=== PATIENT | male | born 1960 | race African-American/Black ===

== ENCOUNTER 2018-04-07 13:45 | Emergency (ER) | payer MEDICAID ==
--- NOTE | 2018-04-07 14:05 | Emergency Department Record ---
History of Present Illness - General Chief Complaint: Wound, puncture Stated Complaint: FISH HOOK THROUGH LT RING FINGER Time Seen by Provider: 04/07/18 14:04 Source: Patient Mode of Arrival: Ambulatory Limitations: No limitations - History of Present Illness Initial Commments: The patient is here due to fish hook stuck in the L 4th finger for an hour. He accidentally got hooked in his garage and was not actually fishing. The hook is stuck in the dorsal distal finger proximal to the nail. His Td is UTD and he denies any numbness. The patient also did not take his BP medicines today. Onset/Timin -: Hour(s) Place: Home Context: Accidental Associated Symptoms: None - Matheus Coma Scale Eye Response: (4) Open spontaneously Motor Response: (6) Obeys commands Verbal Response: (5) Oriented [place] Total: 15 - Related Data Patient Tetanus UTD (within 5 yrs): Yes Home Medications Medication Instructions Recorded Confirmed Last Taken Aspirin [Adult Aspirin] 81 mg PO DAILY 04/07/18 04/07/18 1 Day Ago ~04/06/18 Atorvastatin Calcium 40 mg PO DAILY 04/07/18 04/07/18 1 Day Ago ~04/06/18 Clonidine HCl 0.1 mg PO TID 04/07/18 04/07/18 1 Day Ago ~04/06/18 Hydrochlorothiazide [Hctz] 50 mg PO BID 04/07/18 04/07/18 1 Day Ago ~04/06/18 Previous Rx's Medication Instructions Recorded Cephalexin [Keflex] 500 mg PO QID #28 cap 04/07/18 Allergies Allergy/AdvReac Type Severity Reaction Status Date / Time lisinopril Allergy SWELLING Verified 04/07/18 13:53 OF THE TONGUE Travel Screening - Travel/Exposure Within Last 30 Days Have you traveled within the last 30 days?: No - Travel/Exposure Within Last Year Have you traveled outside the [place] in the last year?: No - Additonal Travel Details Have you been exposed to anyone with a communicable illness?: No - Travel Symptoms Symptom Screening: None Review of Systems Constitutional: Denies: Chills, Fever Past Medical History - SOCIAL HISTORY Smoking Status: Never smoker Alcohol Use: Occasional Drug Use: Occasional Drug Use Detail:: Marijuana - RESPIRATORY Hx Respiratory Disorders: No - CARDIOVASCULAR Hx Hypertension: Yes - NEURO Hx CVA: Yes (2014) Comment:: walks with a limp, right sided - GI Hx GI Disorders: No - Hx Genitourinary Disorders: No - ENDOCRINE Hx Endocrine Disorders: No - MUSCULOSKELETAL Hx Musculoskeletal Disorders: No - PSYCH Hx Psych Problems: No - HEMATOLOGY/ONCOLOGY Hx Hematology/Oncology Disorders: No Family Medical History Any Significant Family History?: Yes Physical Exam - General General Appearance: Alert, Cooperative, No acute distress - Extremities Extremities exam: Full ROM, Tenderness. negative: Normal inspection (There is a fish hook stuck in the dorsal 4th finger.) Image of Hand: 1 - Fish hook location. Course Vital Signs 04/07/18 13:47 Temperature 98.4 F Pulse Rate 78 Respiratory 20 Rate Blood Pressure 201/123 Pulse Ox 98 - Reevaluation(s) Reevaluation #1: Procedure note: The L 4th finger was anesth. using a digital block technique with a 50:50 mixture of Lido 1% and Sensoricaine. The PW was then cleansed with alcohol and the hook easily removed by pulling on it with forceps. 04/07/18 14:24 Reevaluation #2: The patient was encouraged to regularly check his BP and see his PCP next week for recheck. 04/07/18 14:37 Disposition Disposition: Discharge Clinical Impression: Fish hook injury of left hand Qualifiers: Encounter type: initial encounter Qualified Code(s): S69.92XA - Unspecified injury of left wrist, hand and finger(s), initial encounter Disposition: Home, Self-Care Condition: (2) Stable Instructions: Puncture Wound (ED) Additional Instructions: Keep the wound clean and dry for 2 days and watch for signs of infection. Take the Keflex as directed and return to the ER for any problems or increasing pain. Prescriptions: Cephalexin [Keflex] 500 mg PO QID #28 cap Forms: Patient Portal Access Time of Disposition: 14:27 Quality - Quality Measures Quality Measures: N/A - Blood Pressure Screening View Details: Yes Does Patient Have Any of the Following: Active Dx of HTN Blood Pressure Classification: Hypertensive Reading Systolic Measurement: 201 Diastolic Measurement: 123 Screening for High Blood Pressure: Patient Exclusion, Hx of HTN [G9744]
== END 2018-04-07 14:36 | disposition home or self-care (01) ==
LOC: ER 13:45
DX: S61.245A Puncture wound with foreign body of left ring finger without damage to nail, initial encounter (principal); W45.8XXA Other foreign body or object entering through skin, initial encounter; I10 Essential (primary) hypertension; Y92.008 Other place in unspecified non-institutional (private) residence as the place of occurrence of the external cause
CPT/HCPCS: 64450; 99283

== ENCOUNTER 2018-11-19 08:11 | Emergency (ER) | payer MEDICAID ==
--- NOTE | 2018-11-19 08:33 | Emergency Department Record ---
History of Present Illness - General Chief Complaint: Numbness Stated Complaint: NUMBNESS ON LEFT SIDE OF FACE Time Seen by Provider: 11/19/18 08:25 Source: Patient Mode of Arrival: Ambulatory Limitations: No limitations - History of Present Illness Initial Comments: Pt to ED with complaint of "Numbness" to the right side of his face and to the right hand. Onset 3 hours ago at home while awake. Hx of CVA 3-4 years ago with similar. Pt has HTN and is on meds. Took meds this AM. Unsure as to exact meds. There is no complaint of weakness, dizziness, WALKER, CP, ANDREW. No change in speech, gait, vision, or coordination. Admits to daily use of marijuana. Onset/Timin -: Hour(s) Location: Ataxia, Right arm, Right face History of same: Yes Place: Home Severity: Mild Quality: Numb Improves With: None Worsens With: None Context: Sudden onset Associated Symptoms: Weakness Treatments Prior to Arrival: None - [place] Coma Scale Eye Response: (4) Open spontaneously Motor Response: (6) Obeys commands Verbal Response: (5) Oriented [place] Total: 15 - Symptoms of Stroke Onset of Symptoms Date: 11/19/18 Onset of Symptoms Time: 05:30 Symptom Onset Unknown: Yes Symptoms of stroke: Numbness - Related Data Home Medications: Previous Rx's Medication Instructions Recorded Cephalexin [Keflex] 500 mg PO QID #28 cap 04/07/18 Allergies/Adverse Reactions: Allergies Allergy/AdvReac Type Severity Reaction Status Date / Time lisinopril Allergy SWELLING Verified 04/07/18 13:53 OF THE TONGUE Travel Screening - Travel/Exposure Within Last 30 Days Have you traveled within the last 30 days?: No Review of Systems Constitutional: Denies: Chills, Fever, Malaise Eyes: Denies: Eye discharge, Photophobia, Vision change ENT: Denies: Congestion, Ear pain, Hearing loss Respiratory: Denies: Cough, Dyspnea Cardiovascular: Denies: Arrhythmia, Chest pain, Syncope Endocrine: Denies: Fatigue, Polydipsia, Polyuria Gastrointestinal: Denies: Abdominal pain, Diarrhea, Nausea, Vomiting Genitourinary: Denies: Dysuria, Incontinence Musculoskeletal: Denies: Arthralgia, Back pain Neurological: Reports: As per HPI, Numbness. Denies: Abnormal gait, Headache Psychiatric: Denies: Anxiety Hematological/Lymphatic: Denies: Anemia, Blood Clots Past Medical History - SOCIAL HISTORY Smoking Status: Never smoker - RESPIRATORY Hx Respiratory Disorders: No - CARDIOVASCULAR Hx Hypertension: Yes - NEURO Hx Neuro Disorders: Yes Hx CVA: Yes (2014) Comment:: walks with a limp, right sided - GI Hx GI Disorders: No - Hx Genitourinary Disorders: No - ENDOCRINE Hx Endocrine Disorders: No - MUSCULOSKELETAL Hx Musculoskeletal Disorders: No - PSYCH Hx Psych Problems: No - HEMATOLOGY/ONCOLOGY Hx Hematology/Oncology Disorders: No Family Medical History Any Significant Family History?: No Physical Exam - General General Appearance: Alert, Oriented x3, Cooperative, No acute distress - Head Head exam: Atraumatic, Normocephalic - Eye Eye exam: Normal appearance, PERRL, EOMI (Pupils are small and reactive at 2mm) - ENT ENT exam: Normal exam, Mucous membranes moist, Normal external ear exam, TM's normal bilaterally Nasal Exam: Normal inspection. negative: Active bleeding, Sinus tenderness Mouth exam: Normal external inspection Teeth exam: Normal inspection Throat exam: Normal inspection - Neck Neck exam: Normal inspection, Full ROM. negative: Tenderness - Respiratory Respiratory exam: Normal lung sounds bilaterally. negative: Respiratory distress, Rhonchi, Stridor - Cardiovascular Cardiovascular Exam: Regular rate, Normal rhythm, Normal heart sounds. negative : Tachycardia Peripheral Pulses: 2+: Radial (R), Radial (L) - GI/Abdominal GI/Abdominal exam: Soft, Normal bowel sounds. negative: Guarding, Rigid, Tenderness - Extremities Extremities exam: Normal inspection, Full ROM. negative: Joint swelling, Pedal edema - Back Back exam: Reports: Normal inspection. Denies: Vertebral tenderness - Neurological Neurological exam: Alert, CN II-XII intact, Normal gait, Oriented X3, Reflexes normal. negative: Motor sensory deficit - Psychiatric Psychiatric exam: Anxious, Normal mood - Skin Skin exam: Normal color. negative: Rash Stroke Assessment - NIH Stroke Scale 1a. Level of Consciousness: (0) Alert 1b. LOC Questions: (0) Answers Correctly 1c. LOC Commands: (0) Performs Tasks Correctly 2. Best Gaze: (0) Normal 3. Visual: (0) No Visual Loss 4. Facial Palsy: (0) Normal Symmetrical Movement 5a. Motor Arm Left: (0) No Drift 5b. Motor Arm Right: (0) No Drift 6a. Motor Leg Left: (0) No Drift 6b. Motor Leg Right: (0) No Drift 7. Limb Ataxia: (0) Absent 8. Sensory: (0) Normal 9. Best Language: (0) No Aphasia 10. Dysarthria: (0) Normal 11. Extinction/Inattention: (0) No Abnormality NIH Stoke Scale Total: 0 NIH Stroke Scale Date: 11/19/18 NIH Stroke Scale Time: 08:29 Course Vital Signs 11/19/18 08:14 Temperature 97.9 F Pulse Rate 76 Respiratory 20 Rate Blood Pressure 188/109 Pulse Ox 97 - Reevaluation(s) Reevaluation #1: 11/19/18 09:[address] per rads. ASA given for abnormal EKG. Pt without CP, ANDREW. BP 190/100 and pt states "normlaly around 200". Took AM meds. Await old EKG from [facility]. Labetalol for HTN given. K+ 2.8 and IV 20meq ordered. Reevaluation #2: 11/19/18 09:[address] Bradley from [facility] Neuro Stroke service. Accepts to ED for eval. Dr. Mccord in ED accepts. Pt and aware. Exam unchanged. CT and EKG, labs sent with pt. IV K+ 20meq running at transfer time. Pt with CP or ANDREW, continues with facial numbness and right hand numbness. Procedures - EKG Initial Date: 11/19/18 Time: 08:35 EKG: Abnormal EKG (st ELEVATIONS v2-4), ST Elevation PA (STEMI) Medical Decision Making - Management Options MDM Management: Additional Work-up Planned (e.g. ADM/Transfer/OP Study) - Data Complexity MDM Data: Labs Ordered and/or Reviewed, X-Ray Ordered and/or Reviewed, EKG Ordered and/or Reviewed, Discussion of Test Results With Performing Physician, Decision to Obtain Old Record, Review and Summary of Old Record Discussed - Lab Data Result diagrams: 11/19/18 08:30 11/19/18 08:30 - EKG Data -: EKG Interpreted by Me EKG: Abnormal EKG - Radiology Data Radiology results: Report reviewed, Image reviewed Critical Care Time Critical Care Time: Yes (IV meds for HTN and Potassium with EKG changes and Stroke symptoms. ) Total Critical Care Time: 40 Critical Care Time: Stroke symptoms with HTN and need for emergency CT, IV meds for HTN and Potassium., EKG changes required getting old records and cardio calls. Transfer calls to [facility] Neurologist and ED. Multiple conversations and rechecks with patient and Disposition Disposition: Transfer Clinical Impression: CVA (cerebral vascular accident), Hypertension, accelerated, Hypokalemia, Abnormal EKG Disposition: Acute Care Hospital Transfer Transfer To: [facility] ED Reason For Transfer: Stroke evauation with Dr. Bradley Accepting Physician: ED Dr. Mccord Time Discussed w/Accepting Physician: 09:49 Condition: (3) Guarded Forms: Patient Portal Access Time of Disposition: :49 Quality - Quality Measures Quality Measures: N/A - Blood Pressure Screening Does Patient Have Any of the Following: No, Active Dx of HTN Blood Pressure Classification: Hypertensive Reading Systolic Measurement: 149 Diastolic Measurement: 90 Screening for High Blood Pressure: Patient Exclusion, Hx of HTN [G9744]
[2018-11-19 08:38] LABS: BASO % 0.4 % (0-6); EOS % 1.4 % (0-6); GRAN % 70.5 % (47-80); HEMATOCRIT 44.3 % (42.0-52.0); HEMOGLOBIN 15.2 gm/dl (14.0-18.0); LYMPH % 20.5 % (16-45); MEAN CELL VOLUME 92.1 fl (81-97); MEAN CORPUSCULAR HEMOGLOBIN 31.6 pg (27-33); MEAN CORPUSCULAR HGB CONC 34.3 g/dl (32-36); MONO % 7.2 % (0-9); PLATELET COUNT 235 K/uL (130-400); RED BLOOD COUNT 4.81 M/uL (4.40-5.70); RED CELL DISTRIBUTION WIDTH 13.5 % (11.5-14.5); WHITE BLOOD COUNT W/O DIFF 9.2 K/uL (4.2-12.2)
[2018-11-19] MEDS ORDERED: ASPIRIN 81 MG CHEWABLE TABLET PO ONE (08:38)
[2018-11-19 08:48] LABS: BLOOD UREA NITROGEN 12 mg/dL (6-20); CREATININE 1.2 mg/dL (0.7-1.2); EST GLOMERULAR FILTRATION RATE > 60 mL/min
[2018-11-19 08:51] LABS: GLUCOSE,RANDOM 110 mg/dL (74-109)
[2018-11-19 09:01] LABS: PARTIAL THROMBOPLASTIN TIME 27.3 SECONDS (24.5-39.1); PROTHROMBIN TIME (PATIENT) 10.1 SECONDS (9.5-12.1)
[2018-11-19 09:07] LABS: THYROID STIMULATING HORMONE 2.86 uIU/mL (0.270-4.20)
[2018-11-19] MEDS ORDERED: LABETALOL HCL 5MG/ML, 20ML VIAL IV ONE (09:13)
[2018-11-19] MEDS ORDERED: SODIUM CHLORIDE 0.9% IV ONE (09:45)
[2018-11-19] MEDS ORDERED: POTASSIUM ACETATE IV ONE (09:45)
--- NOTE | 2018-11-21 08:40 | CT SCAN REPORT ---
EXAM: NONCONTRAST CT OF THE BRAIN HISTORY: RIGHT SIDED NUMBNESS. TECHNIQUE: Noncontrast CT of the brain was obtained. Comparison: None. FINDINGS: No midline shift, mass effect or abnormal intra or extraaxial fluid collection. No cerebral edema, focal mass, or intracranial hemorrhage detected. Focal hypodensity in the left thalamus suggestive of remote lacunar infarction, mild periventricular and subcortical white matter hypoattenuation suggesting chronic small vessel ischemic changes. The ventricle sizes are within normal limits. The basal cisterns are not effaced. No displaced calvarial fracture. Bilateral ethmoid air cell, maxillary sinus, and sphenoid sinus mucosal thickening. IMPRESSION: 1. NO ACUTE INTRACRANIAL FINDINGS. 2. SUGGESTION OF REMOTE LACUNAR INFARCTION OF THE LEFT THALAMUS. 3. CHRONIC SMALL VESSEL WHITE MATTER CHANGES. JOB NUMBER: [id number] [facility]
--- NOTE | 2018-11-21 08:58 | RADIOLOGY REPORT ---
EXAM: PORTABLE CHEST HISTORY: RIGHT SIDED NUMBNESS. TECHNIQUE: A single frontal view of the chest was obtained. Comparison: None. FINDINGS: The cardiac silhouette is within normal upper limits in size. The pulmonary vasculature is not significantly dilated. No focal pulmonary consolidation. No pleural effusion or pneumothorax. IMPRESSION: NO ACUTE LUNG FINDINGS. JOB NUMBER: [id number] [facility]
== END 2018-11-19 10:00 | disposition short-term general hospital (02) ==
LOC: ER 08:11
DX: R94.31 Abnormal electrocardiogram [ECG] [EKG] (principal); E87.6 Hypokalemia; Z86.73 Personal history of transient ischemic attack (TIA), and cerebral infarction without residual deficits
CPT/HCPCS: 36416; 70450; 71045; 80048; 82948; 84443; 84484; 85025; 85379; 85610; 85730; 93005; 93010; 96374; 96375; 99285; J7050

== ENCOUNTER 2019-08-15 19:33 | Emergency (ER) | payer MEDICAID ==
[2019-08-15] MEDS ORDERED: ASPIRIN 81 MG CHEWABLE TABLET PO ONE (19:37)
--- NOTE | 2019-08-15 19:44 | Emergency Department Record ---
History of Present Illness - General Stated Complaint: HIGH BP Time Seen by Provider: 08/15/19 19:37 Source: Patient Mode of Arrival: Ambulatory Limitations: No limitations - History of Present Illness Initial Comments: 58 yo male presents to ED for evaluation of numbness/tingling to the right upper/lower extremity, reports similar symptoms related to a CVA 5 years ago. Patient reports that his symptoms began around 5 hours ago, patient's however reports that the patient was seen by his PCP 11 hours ago and told to go to the ED from the office. Patient reports similar symptoms resulting from a previous CTA. Patient denies use of anticoagulation medications, denies history of atrial fibrillation, does report HTN history. Patient denies change in balance, vision, or speech. Onset/Timin -: Hour(s) Location: Right arm, Right face History of same: Yes Place: Home Severity: Mild Quality: Constant Improves With: None Worsens With: None On Anticoagulants: No Associated Symptoms: Denies other symptoms Treatments Prior to Arrival: Aspirin - Matheus Coma Scale Eye Response: (4) Open spontaneously Motor Response: (6) Obeys commands Verbal Response: (5) Oriented [place] Total: 15 - Related Data Home Medications: Home Medications Medication Instructions Recorded Confirmed Last Taken Amlodipine Besylate [Norvasc] 10 mg PO DAILY 08/15/19 08/15/19 Unknown Carvedilol 25 mg PO BID 08/15/19 08/15/19 Unknown Colchicine 1 tab PO BID 08/15/19 08/15/19 Unknown Fluticasone Propionate [Allergy 15.8 ml NS ASDIR 08/15/19 08/15/19 Unknown Relief] Hydralazine HCl 100 mg PO BID 08/15/19 08/15/19 Unknown Omeprazole [Prilosec] 20 mg PO DAILY 08/15/19 08/15/19 Unknown Pyridoxine HCl (Vitamin B6) 1 tab PO DAILY 08/15/19 08/15/19 Unknown [Vitamin B-6] Spironolactone 100 mg PO DAILY 08/15/19 08/15/19 Unknown Allergies/Adverse Reactions: Allergies Allergy/AdvReac Type Severity Reaction Status Date / Time lisinopril Allergy SWELLING Verified 08/15/19 19:49 OF THE TONGUE Review of Systems Constitutional: Denies: Chills, Fever, Malaise, Night sweats Eyes: Denies: Eye discharge, Eye pain ENT: Denies: Congestion, Ear pain, Epistaxis Respiratory: Denies: Cough, Dyspnea Cardiovascular: Denies: Chest pain, Dyspnea on exertion Endocrine: Denies: Fatigue, Heat or cold intolerance Gastrointestinal: Denies: Abdominal pain, Nausea, Vomiting Genitourinary: Denies: Incontinence, Retention Musculoskeletal: Denies: Arthralgia, Back pain, Gout, Joint swelling Skin: Denies: Bruising, Change in color Neurological: Reports: Numbness, Tingling. Denies: Abnormal gait, Confusion, Headache, Seizure Psychiatric: Denies: Anxiety Hematological/Lymphatic: Denies: Anemia, Blood Clots Past Medical History - SOCIAL HISTORY Smoking Status: Never smoker - RESPIRATORY Hx Respiratory Disorders: No - CARDIOVASCULAR Hx Hypertension: Yes - NEURO Hx Neuro Disorders: Yes Hx CVA: Yes (2014) Comment:: walks with a limp, right sided - GI Hx GI Disorders: No - Hx Genitourinary Disorders: No - ENDOCRINE Hx Endocrine Disorders: No - MUSCULOSKELETAL Hx Musculoskeletal Disorders: No - PSYCH Hx Psych Problems: No - HEMATOLOGY/ONCOLOGY Hx Hematology/Oncology Disorders: No Physical Exam - General General Appearance: Alert, Oriented x3, Cooperative, Mild distress Limitations: No limitations - Head Head exam: Atraumatic, Normocephalic, Normal inspection Head exam detail: negative: Abrasion, Contusion, Osman's sign, General tenderness, Hematoma, Laceration - Eye Eye exam: Normal appearance. negative: Conjunctival injection, Periorbital swelling, Periorbital tenderness, Scleral icterus - ENT Ear exam: negative: Auricular hematoma, Auricular trauma Nasal Exam: negative: Active bleeding, Discharge, Dried blood, Foreign body Mouth exam: negative: Drooling, Laceration, Muffled voice, Tongue elevation - Neck Neck exam: Normal inspection. negative: Meningismus, Tenderness - Respiratory Respiratory exam: Normal lung sounds bilaterally. negative: Rales, Respiratory distress, Rhonchi, Stridor - Cardiovascular Cardiovascular Exam: Normal rhythm, Normal heart sounds, Tachycardia - GI/Abdominal GI/Abdominal exam: Soft. negative: Rebound, Rigid, Tenderness - Rectal Rectal exam: Deferred - exam: Deferred - Extremities Extremities exam: Normal inspection. 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 ) - Psychiatric Psychiatric exam: Normal affect, Normal mood - Skin Skin exam: Normal color. negative: Abrasion Type of lesion: negative: abrasion Course - Reevaluation(s) Reevaluation #1: 08/15/19 19:44 EKG: Sinus tachycardia 105 Normal axis, normal intervals Nonspecific ST-T wave changes Patient was seen and examined, NIH stroke score is 2. Patient is not currently a tPA candidate based on his NIH stroke scale and duration of symptoms. Will obtain CT brain w/o contrast and CTA of the brain, reassess and transfer for neurology evaluation. Reevaluation #2: 08/15/19 20:07 Laboratory studies were reviewed and appear grossly unremarkable for an acute process except for the following: Potassium 2.8 Oral potassium as well as Magnesium IV and Potassium IV ordered to infuse. Awaiting CT interpretations at this time. Reevaluation #3: 08/15/19 20:36 CT Brain: No acute process Senescent changes CTA Brain: NO large vessel occlusion is identified [facility] Call contacted for transfer. Reevaluation #4: 08/15/19 20:53 Case was discussed with Dr. Elizabeth, will accept transfer for further evaluation. Medical Decision Making - Lab Data Result diagrams: 08/15/19 19:35 08/15/19 19:35 Critical Care Time Critical Care Time: Yes Total Critical Care Time: 45 Critical Care Time: Diagnosis and evaluation for acute neurological process, EKG interpretation, review of the patient's laboratory studies and treatment for hypokalemia, CT head interpretation, frequent updated and reassessments, consultation with Hospitalist at [facility] for admission. Disposition Disposition: Transfer Clinical Impression: Hypokalemia, Right sided numbness Disposition: Acute Care Hospital Transfer Transfer To: [facility] Reason For Transfer: Neurology consultation Accepting Physician: Glenn Time Discussed w/Accepting Physician: 20:53 Condition: (2) Stable Time of Disposition: 20:53 Quality - Quality Measures Quality Measures: N/A - Blood Pressure Screening Does Patient Have Any of the Following: Active Dx of HTN Blood Pressure Classification: Hypertensive Reading Systolic Measurement: 203 Diastolic Measurement: 102 Screening for High Blood Pressure: Patient Exclusion, Hx of HTN [G9744]
[2019-08-15 19:45] LABS: ABSOLUTE NEUTROPHIL COUNT 8.07; BASO % 0.4 % (0-6); EOS % 0.8 % (0-6); GRAN % 62.9 % (47-80); HEMOGLOBIN 16.2 gm/dl (14.0-18.0); LYMPH % 28.9 % (16-45); MEAN CELL VOLUME 89.9 fl (81-97); MEAN CORPUSCULAR HEMOGLOBIN 30.3 pg (27-33); MEAN CORPUSCULAR HGB CONC 33.8 g/dl (32-36); MEAN PLATELET VOLUME 11.3 fl (7.4-10.4); PLATELET COUNT 263 K/uL (130-400); RED BLOOD COUNT 5.34 M/uL (4.40-5.70); WHITE BLOOD COUNT W/O DIFF 12.8 K/uL (4.2-12.2)
[2019-08-15 19:58] LABS: BILIRUBIN,TOTAL 0.8 mg/dL (0.2-1.0); CREATININE 1.4 mg/dL (0.7-1.2)
[2019-08-15 19:59] LABS: TOTAL PROTEIN 8.7 g/dL (6.6-8.7)
[2019-08-15 20:04] LABS: ALB/GLOB RATIO 1.5 (1.1-1.8); ALBUMIN 5.2 g/dL (4.0-5.0)
[2019-08-15] MEDS ORDERED: MAGNESIUM SULFATE 16 MEQ in 0.9 % SODIUM CHLORIDE 100ML 100 ML IV ONE (20:14)
[2019-08-15] MEDS ORDERED: SOD CHLOR 0.9% WITH KCL 40MEQ 40 MEQ/1,000 ML IV.SOLN IV ONE (20:14)
[2019-08-15] MEDS ORDERED: POTASSIUM BICARB./CIT AC 25 MEQ EFF.TAB PO STA (20:14)
--- NOTE | 2019-08-15 20:38 | CT SCAN REPORT ---
EXAMINATION: HEAD WO CONTRAST EXAM DATE: 08/15/2019 8:25 PM TECHNIQUE: Noncontrast axial images were obtained to the brain. INDICATION: right sided numbness/tingling COMPARISON: 11/19/2018 ENCOUNTER: Not applicable. HAND DOMINANCE: Unknown FINDINGS: Low-attenuation areas in the periventricular and subcortical white matter. Chronic lacunar infarct in the left thalamus. The brain parenchyma is otherwise unremarkable. No loss of aguilar-white matter diff erentiation or sulcal effacement to indicate acute infarction. No evidence of intracranial mass. There is mild enlargement consistent with age of the ventricles, sulci, and subarachnoid spaces. No h ydrocephalus. There is arterial calcification. No intra-axial or extra-axial fluid collection. No evidence of intracranial hemorrhage. The paranasal sinuses, mastoid air cells, and orbits are unremarkable. The calvarium is intact. IMPRESSION: 1. No CT evidence of intracranial hemorrhage or acute intracranial abnormality. 2. Moderate white matter hypoattenuation most commonly represents chronic microvascular ischemic di sease. Chronic lacunar infarct in the left thalamus A Red Critical Result was communicated to Dr. Andrew Olivera at 08/15/2019 8:33 PM. Dictated by: BLANQUITA CERDA MD on 08/15/2019 8:31 PM. .
--- NOTE | 2019-08-15 20:41 | CT ANGIOGRAM REPORT ---
EXAMINATION: CT ANGIOGRAM OF THE HEAD WITH CONTRAST, CT ANGIOGRAM OF THE NECK WITH CONTRAST EXAM DATE: 08/15/2019 8:25 PM TECHNIQUE: Arterial phase thin-slice spiral images were obtained during rapid infusion of intravenou s contrast from the aortic arch through the brain. Multiplanar 2-D reformats were performed. For be tter evaluation of vessel anatomy and pathology, post-processing was done to include MIP reconstructi ons. IV Contrast: The type and amount of contrast is recorded in the medical record. PQRI Documentation : All internal carotid artery stenosis were calculated using the distal internal c arotid artery diameter as the denominator (NASCET criteria) INDICATION: right sided numbness/tingling. COMPARISON: CT on 05/27/2019 FINDINGS: CT angiogram head: Right internal carotid artery: Unremarkable. Left internal carotid artery: Unremarkable. Right SANDRA: Unremarkable Right MCA: Unremarkable. Right PALLIATIVE CARE COORDINATOR: Unremarkable. Left SANDRA: Unremarkable Left MCA: Unremarkable. Left PALLIATIVE CARE COORDINATOR: Unremarkable. Right vertebral artery: Unremarkable. Left vertebral artery: Unremarkable. Basilar artery: Unremarkable. No evidence of vascular malformation. The dural sinuses are patent. CT angiogram neck: Normal three-vessel left-sided aortic arch.. The proximal subclavian arteries are unremarkable Right common carotid artery: Unremarkable. Right internal carotid artery: Calcified plaque at the origin without significant stenosis Left common carotid artery: Unremarkable. Left internal carotid artery: Calcified plaque the origin without significant stenosis Right vertebral artery: Unremarkable. Left vertebral artery: Unremarkable. No evidence of carotid or vertebral artery dissection. Contrast timing in the CT and CT angiogram is suboptimal (venous contamination) IMPRESSION: 1. No large vessel occlusion. 2. Noncalcified plaque the origin of the bilateral internal carotid arteries without significant yony nosis using NASCET criteria 3. Suboptimal contrast timing mildly decreases sensitivity and specificity of this exam 4. Otherwise unremarkable CT angiogram of the head and neck. - No evidence of significant intracranial aneurysm or stenosis. No evidence of venous thrombosis - No significant arterial stenosis within the neck using the NASCET criteria. - No evidence of arterial dissection. Dictated by: BLANQUITA CERDA MD on 08/15/2019 8:37 PM. .
== END 2019-08-15 21:40 | disposition short-term general hospital (02) ==
LOC: ER 19:33 → UNDOADMOB 20:13 → MEDSURG 20:13 → UNDODISOB 20:23
DX: E87.6 Hypokalemia (principal); R20.0 Anesthesia of skin; I10 Essential (primary) hypertension
CPT/HCPCS: 70450; 70496; 70498; 80053; 85025; 85610; 93005; 93010; 96365; 96375; 99285

== ENCOUNTER 2019-08-22 14:21 | Emergency (ER) | payer MEDICAID ==
--- NOTE | 2019-08-22 14:29 | Emergency Department Record ---
History of Present Illness - General Chief Complaint: Hypertension Stated Complaint: HIGH BP Time Seen by Provider: 08/22/19 14:26 Source: Patient Mode of Arrival: Ambulatory Limitations: No limitations - History of Present Illness Initial Comments: 58 yo male presents with transient right hand tingling. He denies an vision changes, weakness, speech changes, trouble thinking, walking or moving. He reports he was sent to [facility] one week ago for symptoms concerning for stroke. He did not have any permanent symptoms at that time. He has long standing poorly controlled HTN. No headache. No fever. No trauma. No other new health concerns since DC from [facility]. Complaint: Other (Hand numbness and tingling one hour ago. ) -: Minutes(s) Timing: Sudden onset Description: Other (few fingers on the hand were tingling) History of Same: Yes History of Trauma: No Severity: Mild (resolved) Improves With: Nothing Worsens With: Nothing Associated Symptoms: Denies other symptoms - [place] Coma Scale Eye Response: (4) Open spontaneously Motor Response: (6) Obeys commands Verbal Response: (5) Oriented [place] Total: 15 - Related Data Home Medications Medication Instructions Recorded Confirmed Last Taken Potassium Chloride 20 meq PO DAILY 08/22/19 08/22/19 08/22/19 Allergies Allergy/AdvReac Type Severity Reaction Status Date / Time lisinopril Allergy SWELLING Verified 08/15/19 19:49 OF THE TONGUE Review of Systems Constitutional: Denies: Chills, Fever, Malaise, Weakness Eyes: Denies: Eye discharge, Vision change ENT: Denies: Congestion, Throat pain Respiratory: Denies: Cough, Dyspnea Cardiovascular: Denies: Chest pain, Palpitations, Syncope Endocrine: Denies: Fatigue, Polydipsia, Polyuria Gastrointestinal: Denies: Abdominal pain, Diarrhea, Nausea, Vomiting Genitourinary: Denies: Dysuria, Frequency, Hematuria Musculoskeletal: Denies: Arthralgia, Back pain, Myalgia Skin: Denies: Bruising, Change in color, Rash Neurological: Reports: Numbness (resolved), Tingling. Denies: Abnormal gait, Confusion, Headache, Paresthesias, Seizure, Tremors, Vertigo, Weakness Psychiatric: Denies: Anxiety Hematological/Lymphatic: Denies: Easy bleeding, Easy bruising Past Medical History - SOCIAL HISTORY Smoking Status: Never smoker - RESPIRATORY Hx Respiratory Disorders: No - CARDIOVASCULAR Hx Hypertension: Yes - NEURO Hx Neuro Disorders: Yes Hx CVA: Yes (2014) Comment:: walks with a limp, right sided - GI Hx GI Disorders: No - Hx Genitourinary Disorders: No - ENDOCRINE Hx Endocrine Disorders: No - MUSCULOSKELETAL Hx Musculoskeletal Disorders: No - PSYCH Hx Psych Problems: No - HEMATOLOGY/ONCOLOGY Hx Hematology/Oncology Disorders: No Physical Exam - General General Appearance: Alert, Oriented x3, Cooperative, No acute distress Limitations: No limitations - Head Head exam: Atraumatic, Normal inspection - Eye Eye exam: Normal appearance, PERRL. negative: Conjunctival injection, Scleral icterus - ENT ENT exam: Normal exam, Mucous membranes moist Ear exam: Normal external inspection Nasal Exam: Normal inspection Mouth exam: Normal external inspection - Neck Neck exam: Normal inspection - Respiratory Respiratory exam: Normal lung sounds bilaterally. negative: Respiratory distress - Cardiovascular Cardiovascular Exam: Regular rate, Normal rhythm, Normal heart sounds - GI/Abdominal GI/Abdominal exam: Soft, Normal bowel sounds. negative: Tenderness - Rectal Rectal exam: Deferred - exam: Deferred - Extremities Extremities exam: Normal inspection - Back Back exam: Reports: Normal inspection - Neurological Neurological exam: Alert, CN II-XII intact, Normal gait, Oriented X3, Reflexes normal, Other (Normal FTN, Normal HERBER, Normal walking, Normal speech). negative: Abnormal gait, Altered, Motor sensory deficit - Psychiatric Psychiatric exam: Normal affect, Normal mood - Skin Skin exam: Dry, Intact, Normal color, Warm Stroke Assessment - NIH Stroke Scale 1a. Level of Consciousness: (0) Alert 1b. LOC Questions: (0) Answers Correctly 1c. LOC Commands: (0) Performs Tasks Correctly 2. Best Gaze: (0) Normal 3. Visual: (0) No Visual Loss 4. Facial Palsy: (0) Normal Symmetrical Movement 5a. Motor Arm Left: (0) No Drift 5b. Motor Arm Right: (0) No Drift 6a. Motor Leg Left: (0) No Drift 6b. Motor Leg Right: (0) No Drift 7. Limb Ataxia: (0) Absent 8. Sensory: (0) Normal 9. Best Language: (0) No Aphasia 10. Dysarthria: (0) Normal 11. Extinction/Inattention: (0) No Abnormality NIH Stoke Scale Total: 0 Course - Reevaluation(s) Reevaluation #1: 08/22/19 14:55 NIH is 0 The numbness and tingling of the lateral (ulnar side) 2-3 fingers has resolved prior to arrival The HCT report was called and was negative for any acute process. 08/22/19 15:31 Following discussion with the patient, the patient reports that they want to le ave at this time. Risks of , permanent impairment, or worsening of the current condition were discussed as well as the benefit of transfer to [facility] for further evaluation of their presenting symptoms. I discussed that the specialist for his conditions are at [facility] (Nephrology and Neurology). I explained his symptoms could be a TIA, his BP is not well controlled, and his kidney function is mildly increased. The patient verbalizes understanding of the risks and benefits, but still desires to leave [place] despite these risks. 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 Based on my examination, the patient is alert, oriented, and answers all questions appropriately. He appears to have the capacity to make rational decisions based on my examination. Patient was encouraged to return to the ED immediately or go to [facility] if he changes his mind about treatment and want to be re-evaluated. 08/22/19 15:36 Medical Decision Making - Lab Data Result diagrams: 08/22/19 14:35 08/22/19 14:35 Disposition Disposition: Discharge Clinical Impression: Paresthesia, Renal insufficiency, Left against medical advice Hypertension Qualifiers: Hypertension type: unspecified Qualified Code(s): I10 - Essential (primary) hypertension Disposition: Against Medical Advice Condition: (3) Guarded Instructions: Transient Ischemic Attack (ED), Hypertension (ED), Against Medica l Advice (ED) Additional Instructions: Review this ER visit and the tests performed with your doctor on Sunday as scheduled You are signing out Against Medical Advice today but you may return or be seen anytime Return to the ER for a recheck if worse, any new concerns or questions Take the prescriptions from [facility] provided as directed Forms: Patient Portal Access Time of Disposition: 15:30 Quality - Quality Measures Quality Measures: N/A - Blood Pressure Screening Does Patient Have Any of the Following: Active Dx of HTN Blood Pressure Classification: Hypertensive Reading Systolic Measurement: 171 Diastolic Measurement: 91 Screening for High Blood Pressure: Patient Exclusion, Hx of HTN [[id number]]
[2019-08-22 14:54] LABS: BASO % 0.4 % (0-6); EOS % 2.4 % (0-6); GRAN % 60.5 % (47-80); HEMATOCRIT 42.9 % (42.0-52.0); HEMOGLOBIN 14.5 gm/dl (14.0-18.0); MEAN CELL VOLUME 90.3 fl (81-97); MEAN CORPUSCULAR HEMOGLOBIN 30.5 pg (27-33); MEAN CORPUSCULAR HGB CONC 33.8 g/dl (32-36); MEAN PLATELET VOLUME 11.6 fl (7.4-10.4); MONO % 8.7 % (0-9); PLATELET COUNT 267 K/uL (130-400); RED BLOOD COUNT 4.75 M/uL (4.40-5.70); RED CELL DISTRIBUTION WIDTH 13.8 % (11.5-14.5); WHITE BLOOD COUNT W/O DIFF 8.4 K/uL (4.2-12.2)
--- NOTE | 2019-08-22 14:59 | CT SCAN REPORT ---
EXAMINATION: CT Head without IV Contrast EXAM DATE: 08/22/2019 2:44 PM TECHNIQUE: Standard protocol CT images of the head were obtained without intravenous contrast. Willingham l and sagittal reconstructed images were created. INDICATION: right hand numb, transient COMPARISON: CT brain 08/15/2019. HAND DOMINANCE: Unknown. ENCOUNTER: Not applicable FINDINGS: No acute intracranial hemorrhage or acute cortical infarct evident. No hydrocephalus. Moderate multifocal low-attenuation changes in the cerebral white matter and left thalamus appears si milar to the prior examination suggesting old small vessel ischemic change. Some prominence of left o ccipital sulcus medially suggest some adjacent mild volume loss, as before. IMPRESSION: 1. No acute intracranial hemorrhage or acute cortical infarct evident. 2. Old small vessel ischemic changes are noted. 3. Clinical picture should determine need for follow-up MR brain. Critical results called to Dr. Beckham time of dictation. Dictated by: Otis Pacheco MD on 08/22/2019 2:45 PM. .
[2019-08-22 15:04] LABS: PARTIAL THROMBOPLASTIN TIME 25.9 SECONDS (24.5-39.1); PROTHROMBIN TIME (PATIENT) 10.2 SECONDS (9.5-12.1)
== END 2019-08-22 15:41 | disposition left against medical advice (07) ==
LOC: ER 14:21
DX: N28.9 Disorder of kidney and ureter, unspecified (principal); R20.2 Paresthesia of skin; I10 Essential (primary) hypertension; I69.951 Hemiplegia and hemiparesis following unspecified cerebrovascular disease affecting right dominant side; Z53.29 Procedure and treatment not carried out because of patient's decision for other reasons
CPT/HCPCS: 70450; 80048; 85025; 85610; 85730; 99284